=== PATIENT | male | born 1950 | race Caucasian/White ===

== ENCOUNTER 2021-02-15 10:57 | Emergency (ER) | payer BC, MEDICARE ==
[2021-02-15] MEDS ORDERED: hydrALAZINE (APESOLINE) 20 MG/ML VIAL IV STA (11:08)
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
[2021-02-15 11:20] LABS: HEMATOCRIT 47 % (40-54); HEMOGLOBIN 15.8 G/DL (13.3-17.7); MEAN CORPUSCULAR HEMOGLOBIN 30 PG (25-34); MEAN CORPUSCULAR HGB CONC 34 G/DL (32-36); MEAN CORPUSCULAR VOLUME 89 FL (80-99); PLATELET COUNT 393 10^3/uL (130-400); WHITE BLOOD COUNT 12.9 10^3/uL (4.3-11.0)
[2021-02-15 11:21] LABS: BASOPHILS % (AUTO) 1 % (0-10); EOSINOPHILS % (AUTO) 2 % (0-10); LYMPHOCYTES % (AUTO) 21 % (12-44); MONOCYTES % (AUTO) 6 % (0-12); NEUTROPHILS % (AUTO) 70 % (42-75)
[2021-02-15 11:22] LABS: BASOPHILS # (AUTO) 0.1 10^3/uL (0.0-0.1); EOSINOPHILS # (AUTO) 0.2 10^3/uL (0.0-0.3); LYMPHOCYTES # (AUTO) 2.7 X 10^3 (1.0-4.0); MONOCYTES # (AUTO) 0.8 X 10^3 (0.0-1.0)
[2021-02-15 11:41] LABS: CARBON DIOXIDE 28 MMOL/L (21-32); CHLORIDE 105 MMOL/L (98-107); POTASSIUM 4.5 MMOL/L (3.6-5.0); SODIUM 142 MMOL/L (135-145)
[2021-02-15 11:42] LABS: ALANINE AMINOTRANSFERASE 55 U/L (0-55); ALBUMIN 4.2 GM/DL (3.2-4.5); ALKALINE PHOSPHATASE 96 U/L (40-136); BILIRUBIN,TOTAL 0.7 MG/DL (0.1-1.0); BUN/CREATININE RATIO 34; CALCIUM 9.3 MG/DL (8.5-10.1); CREATININE SERUM 0.73 MG/DL (0.60-1.30); GFR ESTIMATED > 60; GLUCOSE 116 MG/DL (70-105); TOTAL PROTEIN 7.4 GM/DL (6.4-8.2)
[2021-02-15] MEDS ORDERED: HOLD METFORMIN - RECEIVED CONTRAST 20 ML VIAL IV SCH (12:00)
[2021-02-15] MEDS ORDERED: IOHEXOL 350 MG/ML 100 ML (OMNIPAQUE 350) VIAL IV ONE (12:00)
[2021-02-15] MEDS ORDERED: NS 100 ML (IVPB) BAG IV ONE (12:00)
[2021-02-15] MEDS ORDERED: CATHETER FLUSH 10 ML SYR IV PRN (12:00)
--- NOTE | 2021-02-15 12:03 | Diagnostic Imaging Report ---
Indication: Throat swelling. Time of exam: 12:00 PM No prior studies are available for comparison. The heart size is normal. Lungs show some hyperinflation consistent with COPD. No infiltrates are seen. There is no effusion or pneumothorax. Pulmonary vascularity is normal. Impression: No acute cardiopulmonary process is detected. Dictated by: Dictated on workstation # [id number]
--- NOTE | 2021-02-15 12:28 | Diagnostic Imaging Report ---
PROCEDURE: CT neck soft tissue with contrast. TECHNIQUE: Multiple contiguous axial images were obtained through the neck after the administration of contrast. Auto Exposure Controls were utilized during the CT exam to meet ALARA standards for radiation dose reduction. INDICATION: Dysphagia COMPARISON: None available. FINDINGS: The airway is widely patent. There is no appreciable foreign body within the airway. No abnormal mucosal thickening within the nasopharynx, oropharynx or the base of the tongue. Epiglottis is normal in appearance. No parapharyngeal fluid collection. No features of peritonsillar abscess. The thyroid gland has some mild heterogeneous attenuation likely due to small nodules which do not meet criteria for suggested followup with ultrasound. The parotid glands are symmetric. Submandibular glands are normal. No cervical lymphadenopathy. The left internal carotid artery is occluded at its origin and this is likely chronic in nature as there is opacification of the left distal internal carotid artery in its intracranial segment. Prior ACDF of C4-C5. The fixation plate is flush with the anterior wall of the vertebral bodies and there is no loosening of the fixation screws. No osseous incorporation of the interbody bone graft material at C3-C4 or C5-C6. 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 IMPRESSION: 1. Widely patent airway without apparent intraluminal mass or foreign body. 2. ACDF of C3-C5 has intact hardware and the plate remains flush against the anterior wall of the vertebral bodies without mass effect on the airway. 3. Incidental note of chronically occluded left ICA at its origin within the neck and reconstitution of flow at the distal internal carotid artery likely from collateral supply. Dictated by: Dictated on workstation # [id number]
[2021-02-15 12:42] VITALS: BP 168/81
== END 2021-02-15 12:42 | disposition home or self-care (01) ==
LOC: EDUNIT# 10:57 → ER FS 10:59
DX: J06.9 Acute upper respiratory infection, unspecified (principal); R03.0 Elevated blood-pressure reading, without diagnosis of hypertension; D72.829 Elevated white blood cell count, unspecified
CPT/HCPCS: 36415; 70491; 71046; 80053; 85025; 86141; 96374; 96375

== ENCOUNTER → 2022-08-29 | Outpatient (CLI) | payer BC, MEDICARE ==
--- NOTE | 2022-08-29 15:19 | Diagnostic Imaging Report ---
INDICATION: SOB COMPARISON: 02/15/2021 FINDINGS: Frontal and lateral views of the chest demonstrate normal heart size and pulmonary vascularity. The lungs are clear. There are no signs of infiltrate, pleural effusions or pneumothoraces. The visualized osseous structures show no acute abnormalities. IMPRESSION: 1. No acute process. No signs of infiltrates, effusions or pneumothoraces. Dictated by: Dictated on workstation # [id number]
== END ==
LOC: RAD FS 14:41
PROVIDERS: ATTEND Nurse Practitioner Family
DX: R06.02 Shortness of breath (principal)
CPT/HCPCS: 71046